=== PATIENT | female | born 1950 | race African-American/Black ===

== ENCOUNTER → 2017-04-09 | Outpatient (CLI) | payer OTHER ==
[~2017-04-09] MED LIST: AMLODIPINE BESY10 MG; IBUPROFEN 800800 M1 PO
== END ==
LOC: NUC 08:56
DX: M81.0 Age-related osteoporosis without current pathological fracture (principal); M85.88 Other specified disorders of bone density and structure, other site

== ENCOUNTER 2017-06-10 04:36 | Inpatient (IN) | payer OTHER ==
[2017-06-10] VITALS (16 sets, daily range): BP systolic 96–177; BP diastolic 53–104
[~2017-06-10] VITALS: Ht 160 cm; Wt 74.4 kg
--- NOTE | ~2017-06-10 | H ---
[facility] [place] [address] HISTORY AND PHYSICAL Name: WILEY ROSADO Alok Room #: 218-P ADM IN M.R.#: [id number] Admission: 06/10/17 Attend Phys: Julio Young MD, Discharge: Date of : 50 Report #: [id number] THIS REPORT FOR: //name// CC: Julio Loya MD DATE OF SERVICE: 06/10/2017 HISTORY OF PRESENT ILLNESS: The patient is a 66-year-old -Filipino female. She does not have any prior cardiac history, has noted on and off left-sided chest pain, radiating around to the back, she states intermittently for the last 4 days. She denies any real change in exercise tolerance and may be slightly more fatigued, she states. Her initial troponin interestingly was elevated 3.2. H and H are 13 and 39. Her creatinine was 0.7. She is active, but does not regularly exercise. She is a long time smoker on and off for the last 40 years. Her pain was 6/10 initially and then received some nitroglycerin, did improve at 1/10. Essentially pain free at this point. EKG sinus rhythm with nonspecific changes. I am trying to review this. This was noted from the ER. PAST MEDICAL HISTORY: Positive for an ectopic and hypertension. She is not aware of elevated cholesterol in the past, and she has been noncompliant with her blood pressure meds. SOCIAL HISTORY: She is . She has children who live all over the country. 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 Positive tobacco. Social alcohol. REVIEW OF SYSTEMS: Essentially negative except for stated above, some occasional reflux and heartburn symptoms, although this seems different, she states. ALLERGIES: No known drug allergies. PHYSICAL EXAMINATION: GENERAL: Pleasant, alert. VITAL SIGNS: Blood pressure is 140/74, pulse is 70s and regular. HEENT: Eyes reveal xanthelasma. Pharynx is clear. NECK: Shows preserved upstrokes without JVD or bruits. LUNGS: Clear. CARDIOVASCULAR: Regular rate and rhythm, S1, S2. ABDOMEN: Soft, slightly tender in the midepigastric area, but no rebound. Positive bowel sounds. EXTREMITIES: Reveal no edema. Distal pulses slightly diminished, but intact. NEUROLOGIC: Nonfocal. SKIN: Warm and dry without xanthoma or ulcer. [facility] [address] [place] [address] HISTORY AND PHYSICAL Name: WILEY ROSADO Room #: 218-P [facility] IN [facility]#: [id number] Admission: 06/10/17 Attend Phys: Julio Young MD, Discharge: Date of : 50 Report #: [id number] MUSCULOSKELETAL: No gross joint deformity. ASSESSMENT: 1. Non-ST elevation myocardial infarction (currently pain free). 2. Hypertension. 3. Suspected hypercholesterolemia. 4. History of reflux. RECOMMENDATIONS AND PLAN: We will proceed to the catheterization lab to delineate the anatomy. In light of the troponin of 3, this likely to be a false positive. Intervention is indicated. Risks, benefits, alternatives were discussed with the patient. I will check a lipid profile, which is still pending. Repeat the EKG and echo Doppler in addition, but we will proceed somewhat urgently to the experimental machining lab manager at this point. Thank you for opportunity to assist in the care of this patient. <ELECTRONICALLY SIGNED> By: Julio Young MD, FACC 06/10/17 1122 0807 0848 Julio Young MD, FACC /nt
--- NOTE | ~2017-06-10 | EKG ---
[address] [address] ELECTROCARDIOGRAM REPORT Name: WILEY ROSADO Room #: 218- ADM IN M.R.#: [id number] Admission: 06/10/17 Attend Phys: Julio Young MD, Discharge: Date of : 50 Report #: [id number] THIS REPORT FOR: //name// [facility] Test Date: 2017-06-11 Test Time: 06:00:26 Pat Name: WILEY ROSADO Department: Room: 218 Gender: F Component Lab Tech: ADIEL : 1950 Requested By: Julio Young Order Number: [id number] MD: David Valdez Measurements Intervals [place] Rate: 58 P: 39 UT: 142 QRS: 92 QRSD: 106 T: 40 QT: 423 QTc: 416 Interpretive Statements Sinus bradycardia Probable left atrial enlargement Consider right ventricular hypertrophy Baseline wander in lead(s) V3 Compared to ECG 06/10/2017 10:02:31 No significant change was found Electronically Signed On 06-11-2017 8:04:32 ORACLE DATABASE ADMINISTRATOR by David Valdez [email or web address] <ELECTRONICALLY SIGNED> By: David Valdez MD, [facility] 06/11/17 0804 06 06 David Valdez MD, [facility] /EPI
--- NOTE | ~2017-06-10 | EKG ---
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: Bryon SANCHEZ : 1950 Requested By: Julio Young Order Number: [id number] MD: David Valdez Measurements Intervals [place] Rate: 56 P: 39 [place]: 161 QRS: 91 QRSD: 83 T: 46 QT: 432 QTc: 417 Interpretive Statements Sinus rhythm Nonspecific ST segment abnormality Abnormal R-wave progression, early transition Compared to ECG 06/10/2017 04:41:47 Atrial premature complex(es) no longer present Electronically Signed On 06-10-2017 17:32:09 SURVEY PARTY CHIEF by David Valdez [email or web address] <ELECTRONICALLY SIGNED> By: David Valdez MD, FAC 06/10/17 1732 1002 1002 David Valdez MD, [facility] /EPI
--- NOTE | ~2017-06-10 | CATHLAB ---
[facility] [place] [address] INVASIVE PROCEDURE REPORT Name: ALONZOWILEY Room #: 218-P DIS IN ..#: [id number] Admission: 06/10/17 Attend Phys: Julio Young, Discharge: 06/12/17 Date of : 50 Date of Service: 06/16/17 1736 Report #: [id number] THIS REPORT FOR: //name// APPROVED REPORT Patient Details Patient Status: In-Patient Room #: 218 The patient is a 66 year-old female Event Personnel Julio Young Ferris Wheel Attendant, Bob Porter RN, Jina Alarcon, Mitesh Kaminski Monitor Procedures Performed Art Access - R femoral artery* Left Heart Cath w/or w/o Coronaries [id number] [facility] Aortogram Abdominal Peripheral Angio [id number] BECKY Place w/wo Plasty Addl BR OM 1 C9601 DESADDL Procedure Narrative The Right Groin^ was infiltrated with 1% Lidocaine subcutaneous anesthesia. A PINNACLE 6FR Sheath #[id number] sheath was inserted into the RFA^. Coronary angiography was performed using coronary diagnostic catheters. The right coronary system was accessed and visualized with a JR4 catheter. The left coronary system was accessed and visualized with a JL4 catheter. The left ventricle was accessed and visualized with a Pigtail catheter. Left ventriculogram was performed in 30 degree projection. An aortogram of the abdominal aorta was performed. Closure device was deployed with a 6 Fr Mynx. The patient tolerated the procedure well and there were no complications associated with the procedure. There was no hematoma. Intraoperative Conscious Sedation Sedation start time: 08:11 Case end Time: 08:42 Versed 2 mg Fluoro Time: 7.30 minutes Dose: 956 mGy Contrast Type and Amount: Omnipaque 210 ml Hemodynamics The aortic pressure is 144/78 mmHg with a mean of 106 mmHg. The left ventricular pressure is 130/8 mmHg with a mean of mmHg. The left ventricular end diastolic pressure is 27 mmHg. [facility] [address] [place] [address] INVASIVE PROCEDURE REPORT Name: WILEY ROSADO Room #: 218-P [facility] IN [facility].#: [id number] Admission: 06/10/17 Attend Phys: Julio Young, Discharge: 06/12/17 Date of : 50 Date of Service: 06/16/17 1736 Report #: [id number] PCI Technique Lesion Percutaneous coronary intervention was performed on the first obtuse marginal branch segment. A LAUNCHER 6FR EBU 3.5 #[id number] Guide Catheter was used to engage the LCA ostium. A Luge Wire .014 x 182CM #[id number] Interventional Guidewire was used to cross the lesion. BALLOON DILATION A Balloon catheter Sprinter OTW 2.5 x 12 #[id number] was inserted and inflated up to 6.00atm for 32seconds. Additional Inflation: 8.00atm for 20seconds. Additional Inflation: 4.00atm for 22seconds. STENT DEPLOYMENT A drug-eluting stent RESOLUTE OTW 2.5 X 8 #[id number] was inserted and inflated up to 12.00atm for 25seconds. POST STENT DEPLOYMENT BALLOON DILATION A Balloon catheter RESOLUTE OTW 2.5 X 8 #[id number] was inserted and inflated up to 14.00atm for 22seconds. Conclusion #1 successful emergent PTCA stent of proximal OM branch largest system 100% occlusion to 0% with a 2.5 x 12 resolute drug-eluting stent postdilated 2.7 mm. Extensive distribution of this OM system. #2 left main free of disease giving rise to LAD and circumflex #3 LAD with mild irregularities 3040% proximal is extensive the apex with diffuse disease distally there is an ostial lesion of 40-50% just off the left main #4 anatomically dominant right coronary artery with mild disease in the proximal and mid segment with the PDA well preserved #5 normal left ventricular size with a lateral wall hypokinetic segment EF 50% range #6 abdominal aorta is intact with a renal arteries widely patent no aneurysm. Recommendation continue aggressive risk factor modification dual antiplatelet therapy. No lifting for 48 hours. No line tub Jacuzzi or Martins for a week. No MRI or dental work for 3 months. Transfer to CCU in stable condition <ELECTRONICALLY SIGNED> By: Julio Young MD, FACC 06/16/17 1736 35 35 Julio Young MD, FACC /INF
--- NOTE | ~2017-06-10 | 2DMMODE ---
[facility] [place] [address] 2 D/M-MODE ECHOCARDIOGRAM Name: WILEY ROSADO Room #: 218-P [facility] IN .R.#: [id number] Admission: 06/10/17 Attend Phys: Julio Young, Discharge: Date of : 50 Date of Service: 06/10/17 1218 Report #: [id number] THIS REPORT FOR: //name// APPROVED REPORT Study performed: 06/10/2017 10:12:37 EXAM: Comprehensive 2D, Doppler, and color-flow Echocardiogram Patient Location: [facility] Room #: 218 Status: routine BSA: 1.78 HR: 58 bpm BP: 137/91 mmHg Rhythm: NSR Other Information Study Quality: Adequate Indications Chest pain, elevated tropinin. Status post stent 06/10/17. Hx: HTN 2D Dimensions RVDd: 36.28 mm LVEF(%): 51.02 (>50%) IVSd: 10.18 (7-11mm) LVOT Diam: 19.35 (18-24mm) LVDd: 41.30 mm PWd: 10.45 (7-11mm) Ascending Ao: 31.53 (22-36mm) LVDs: 30.69 (25-40mm) Aortic Root: 32.64 mm Claros's LVEF: 51.02 % Volumes Left Atrial Volume (Systole) Single Plane 4CH: 40.62 mL Single Plane 2CH: 49.01 mL LA ESV Index: 29.00 mL/m2 Aortic Valve AoV Peak Milad.: 1.73 m/s AO Peak Gr.: 11.96 mmHg LVOT Max P.08 mmHg LVOT Max V: 1.13 m/s ROSEMARY Vmax: 1.91 cm2 Mitral Valve E/A Ratio: 0.7 [facility] [place] [address] 2 D/M-MODE ECHOCARDIOGRAM Name: WILEY ROSADO Room #: 218-P [facility] IN .R.#: [id number] Admission: 06/10/17 Attend Phys: Julio Young, Discharge: Date of : 50 Date of Service: 06/10/17 1218 Report #: [id number] MV Decel. Time: 154.46 ms MV E Max Milad.: 0.86 m/s MV A Milad.: 1.16 m/s MV PHT: 44.79 ms IVRT: 59.98 ms Pulmonary Valve PV Peak Milad.: 0.92 m/s PV Peak Gr.: 3.36 mmHg Tricuspid Valve TR Peak Milad.: 2.63 m/s RAP Estimate: 5.00 mmHg TR Peak Gr.: 27.63 mmHg PA Pressure: 33.00 mmHg Left Ventricle The left ventricle is normal size. Lateral wall hypokinesis There is normal left ventricular wall thickness. Left ventricular systolic function is mildly decreased. LVEF is 45-50%. Mild diastolic dysfunction is present (impaired relaxation pattern). Right Ventricle The right ventricle is normal size. The right ventricular systolic function is normal. Atria The left atrium size is normal. The right atrium size is normal. Aortic Valve Aortic valve is mildly calcified, trileaflet No aortic regurgitation is present. There is no aortic valvular stenosis. Mitral Valve The mitral valve is normal in structure. Mild to moderate mitral regurgitation Tricuspid Valve The tricuspid valve is normal in structure. Mild to moderate tricuspid regurgitation. Estimated PAP is 30-35mmHg. Pulmonic Valve The pulmonary valve is normal in structure. Trace pulmonic regurgitation. Great Vessels The aortic root is normal in size. The ascending aorta is normal in [address] [address] 2 D/M-MODE ECHOCARDIOGRAM Name: ALONZOWILEY Room #: 218-P [facility] IN [facility]#: [id number] Admission: 06/10/17 Attend Phys: Julio Young, Discharge: Date of : 50 Date of Service: 06/10/17 1218 Report #: [id number] size. IVC is normal in size and collapses >50% with inspiration. Pericardium There is no pericardial effusion. <Conclusion> Left ventricular systolic function is mildly decreased. Lateral wall hypokinesis. LVEF 45-50%. Mild diastolic dysfunction is present (impaired relaxation pattern). Aortic valve is mildly calcified, trileaflet. No aortic valvular stenosis or insufficiency. The mitral valve is normal in structure. Mild to moderate mitral regurgitation Pulmonary artery pressure of 30-35mmHg There is no pericardial effusion. <ELECTRONICALLY SIGNED> By: David Valdez MD, FACC 06/10/17 1218 David Valdez MD, FACC /INF
--- NOTE | ~2017-06-10 | D ---
[facility] [place] [address] DISCHARGE SUMMARY Name: WILEY ROSADO Room #: 218-P [facility] IN M.R.#: [id number] Admission: 06/10/17 Attend Phys: Julio Young MD, Discharge: 06/12/17 Date of : 50 Report #: [id number] THIS REPORT FOR: //name// CC: Julio Loya MD DATE OF SERVICE: 06/12/2017 HOSPITAL COURSE: A 66-year-old female who was admitted with onset of chest pain. Says it had been stuttering for 4 days, became worse the night of admission. Had a slight elevation in the troponin initially and subsequently taken to the Catheterization Lab. Found to have a totally occluded circumflex OM system and this rather turned out to be a significant large distribution of the circumflex artery. This patient had this successfully dilated and stented with a 2.5 x 8 Resolute drug-eluting stent. Just off of the OM was extensive distribution. This was postdilated 2.8 mm. 40% ostial LAD lesion, mild left main and a dominant right without significant occlusive disease. Small area of hypokinesis in the lateral wall. EF was approximately 45-50%. I expect this to improve. She has tolerated this well. She is up and ambulating. She will enter into Outpatient Cardiac Rehab. She will be discharged on aspirin and Plavix, metoprolol 50, losartan 25, atorvastatin 40. No lifting for 48 hours. No lying in tub, Jacuzzi or ramos for a week. No MRI or dental work for 3 months. The patient is scheduled enter into outpatient cardiac rehab next week and has followup with me in 3 months with an echo Doppler to assess the LV function, which I suspect will nearly normalize. She will call with any issues. Hemodynamically stable. DISCHARGE DIAGNOSES: 1. Non-ST elevation myocardial infarction with total troponin up to 68. 2. Mild ischemic cardiomyopathy, expect improvement. 3. Hypertension. 4. Hypercholesterolemia. 5. History of reflux. Thank you for asking me to assist care of this patient. <ELECTRONICALLY SIGNED> By: Julio Young MD, FACC 06/16/17 0902 0910 0941 Julio Young MD, FACC /nt
--- NOTE | ~2017-06-10 | EKG ---
[address] [place] [address] ELECTROCARDIOGRAM REPORT Name: WILEY ROSADO Room #: 218-P ADM IN M.R.#: [id number] Admission: 06/10/17 Attend Phys: Julio Young MD, Discharge: Date of : 50 Report #: [id number] THIS REPORT FOR: //name// [facility] ED Test Date: 2017-06-10 Test Time: 04:41:47 Pat Name: WILEY ROSADO Department: Room: 218 Gender: F Graphics Production Specialist: ELLIS : 1950 Requested By: Maura Miranda Order Number: [id number] MD: Brown Almanza Measurements Intervals [place] Rate: 72 P: 30 [place]: 145 QRS: 81 QRSD: 84 T: 48 QT: 402 QTc: 440 Interpretive Statements Sinus rhythm Atrial premature complexes Probable left atrial enlargement Borderline right axis deviation Abnormal R-wave progression, early transition Borderline ST depression, anterolateral leads Compared to ECG 07/06/2005 16:06:08 Atrial premature complex(es) now present ST (T wave) deviation now present Possible ischemia no longer present Electronically Signed On 06-10-2017 8:19:07 METAL EXTRUSION SUPERVISOR by Brown Almanza [email or web address] <ELECTRONICALLY SIGNED> By: Brown Almanza MD 06/10/17 08 0 0 Brown Almanza MD /EPI
[2017-06-10 05:27] LABS: ABSOLUTE NEUTROPHILS 8.3 thou/uL (1.4-8.2); BASOPHILS 0.4 % (0.0-2.0); EOSINOPHILS 0.8 % (0.0-3.0); HEMATOCRIT 39.5 % (37.0-47.0); HEMOGLOBIN 13.2 gm/dL (12.0-15.0); LYMPHOCYTES 20.3 % (24.0-44.0); MCH 31.3 pg (26.0-34.0); MCHC 33.5 g/dL (28.0-37.0); MCV 93.4 fL (80.0-100.0); MONOCYTES 7.8 % (1.0-8.0); PLATELET COUNT 251 thou/uL (150-400); POLYS 70.7 % (36.0-66.0); RBC 4.23 mil/uL (4.20-5.00); RDW 12.8 % (10.5-14.5); WBC 11.7 thou/uL (4.0-11.0)
[2017-06-10 05:36] LABS: CALCIUM 9.5 mg/dL (8.5-10.1); CREATININE 0.7 mg/dL (0.6-1.0); POTASSIUM 3.9 mmol/L (3.5-5.1)
[2017-06-10 05:50] LABS: TROPONIN-I 3.2 ng/mL (<0.06)
[2017-06-10 09:44] LABS: CHOLESTEROL 159 mg/dL (<200); HDL CHOLESTEROL 43 mg/dL (>40); LDL CHOLESTEROL 112 mg/dL (<100); TC:HDL 3.7 Ratio (Not establshd); TRIGLYCERIDE 24 mg/dL (<150); VLDL 5 mg/dL (<40)
[2017-06-11 00:30] VITALS: BP 120/66
[2017-06-11 03:50] LABS: HEMATOCRIT 37.8 % (37.0-47.0); HEMOGLOBIN 12.5 gm/dL (12.0-15.0); MCH 31.4 pg (26.0-34.0); MCV 94.9 fL (80.0-100.0); RBC 3.99 mil/uL (4.20-5.00); RDW 12.8 % (10.5-14.5); WBC 10.1 thou/uL (4.0-11.0)
[2017-06-11 04:10] LABS: CALCIUM 8.5 mg/dL (8.5-10.1); CREATININE 0.8 mg/dL (0.6-1.0); POTASSIUM 4.2 mmol/L (3.5-5.1)
[2017-06-11 04:20] LABS: TROPONIN-I 23.98 ng/mL (<0.06)
[2017-06-11 06:01] VITALS: BP 100/59
[2017-06-11 12:20] VITALS: BP 111/68
[2017-06-11] MEDS ORDERED: METOPROLOL SUCC50 MG PO (16:19)
[2017-06-11] MEDS ORDERED: COZAAR 25 MG TA25 M1 PO (16:19)
[2017-06-11] MEDS ORDERED: CLOPIDOGREL75 MG PO (16:19)
[2017-06-11] MEDS ORDERED: ATORVASTATIN CA40 MG PO (16:19)
[2017-06-11 16:35] VITALS: BP 122/51
[2017-06-11 20:15] VITALS: BP 128/75
[2017-06-11 20:45] VITALS: BP 128/75
[2017-06-12 04:30] VITALS: BP 122/65
[2017-06-12 04:35] LABS: CALCIUM 8.8 mg/dL (8.5-10.1); CREATININE 0.7 mg/dL (0.6-1.0); POTASSIUM 4.3 mmol/L (3.5-5.1)
[2017-06-12 07:45] VITALS: BP 135/68
[2017-06-12] MEDS ORDERED: ASPIRIN325 PO (09:06)
[2017-06-12 09:24] VITALS: BP 122/65
[2017-06-12 09:28] VITALS: BP 122/65
== END 2017-06-12 10:20 | disposition home or self-care (01) | DRG 247 ==
LOC: ER 04:36 → 2N 06:02 → EROBS 06:02 → 2N 06:31
PROVIDERS: Emergency Medicine; Internal Medicine Cardiovascular Disease; Nurse Practitioner Adult Health
DX: I21.4 Non-ST elevation (NSTEMI) myocardial infarction (principal); I10 Essential (primary) hypertension; I25.5 Ischemic cardiomyopathy; E78.00 Pure hypercholesterolemia, unspecified; K21.9 Gastro-esophageal reflux disease without esophagitis; F17.210 Nicotine dependence, cigarettes, uncomplicated; Z71.6 Tobacco abuse counseling
CPT/HCPCS: 10081

== ENCOUNTER → 2020-03-22 | Outpatient (CLI) | payer OTHER ==
[~2020-03-22] MED LIST changes: +ASPIRIN325 PO; +ATORVASTATIN CA40 MG PO; +CLOPIDOGREL75 MG PO; +COZAAR 25 MG TA25 M1 PO; +METOPROLOL SUCC50 MG PO
== END ==
LOC: SJCVC 13:12
PROVIDERS: ATTEND Internal Medicine Cardiovascular Disease
DX: R94.31 Abnormal electrocardiogram [ECG] [EKG] (principal); I25.10 Atherosclerotic heart disease of native coronary artery without angina pectoris; E78.00 Pure hypercholesterolemia, unspecified; I10 Essential (primary) hypertension; I21.4 Non-ST elevation (NSTEMI) myocardial infarction; I34.1 Nonrheumatic mitral (valve) prolapse; R07.9 Chest pain, unspecified; I42.2 Other hypertrophic cardiomyopathy

== ENCOUNTER → 2020-04-12 | Outpatient (CLI) | payer OTHER | LOC: SJCVCIMAG 08:37 | PROVIDERS: ATTEND Internal Medicine Cardiovascular Disease | DX: I34.1 Nonrheumatic mitral (valve) prolapse (principal); I11.9 Hypertensive heart disease without heart failure; E78.5 Hyperlipidemia, unspecified; I25.10 Atherosclerotic heart disease of native coronary artery without angina pectoris; Z95.5 Presence of coronary angioplasty implant and graft ==

== ENCOUNTER → 2020-04-18 | Outpatient (CLI) | payer OTHER | LOC: SJCVCIMAG 09:37 | PROVIDERS: ATTEND Internal Medicine Cardiovascular Disease | DX: R94.31 Abnormal electrocardiogram [ECG] [EKG] (principal); I49.1 Atrial premature depolarization; I11.9 Hypertensive heart disease without heart failure; N28.1 Cyst of kidney, acquired; I25.10 Atherosclerotic heart disease of native coronary artery without angina pectoris; I34.1 Nonrheumatic mitral (valve) prolapse; E78.00 Pure hypercholesterolemia, unspecified; I25.2 Old myocardial infarction; F17.210 Nicotine dependence, cigarettes, uncomplicated; Z79.82 Long term (current) use of aspirin; Z79.899 Other long term (current) drug therapy ==

== ENCOUNTER → 2020-06-04 | Outpatient (CLI) | payer OTHER | LOC: SJCVC 10:24 | PROVIDERS: ATTEND Nurse Practitioner | DX: I25.10 Atherosclerotic heart disease of native coronary artery without angina pectoris (principal); R93.1 Abnormal findings on diagnostic imaging of heart and coronary circulation; I49.49 Other premature depolarization; E78.00 Pure hypercholesterolemia, unspecified; I11.9 Hypertensive heart disease without heart failure; I34.1 Nonrheumatic mitral (valve) prolapse; I25.2 Old myocardial infarction; Z95.5 Presence of coronary angioplasty implant and graft; Z79.82 Long term (current) use of aspirin; Z79.899 Other long term (current) drug therapy; Z87.891 Personal history of nicotine dependence ==

== ENCOUNTER → 2020-11-12 | Outpatient (CLI) | payer OTHER | LOC: RAD 14:54 | PROVIDERS: ATTEND Family Medicine | DX: R05 Cough (principal); R10.2 Pelvic and perineal pain; M81.0 Age-related osteoporosis without current pathological fracture; I51.7 Cardiomegaly ==

== ENCOUNTER → 2021-01-07 | Outpatient (CLI) | payer OTHER | LOC: NUC 09:20 | PROVIDERS: ATTEND Family Medicine | DX: D25.9 Leiomyoma of uterus, unspecified (principal); M85.88 Other specified disorders of bone density and structure, other site; I51.7 Cardiomegaly; R09.89 Other specified symptoms and signs involving the circulatory and respiratory systems ==

== ENCOUNTER → 2021-01-14 | Outpatient (CLI) | payer OTHER | LOC: SJCVC 13:31 | PROVIDERS: ATTEND Internal Medicine Cardiovascular Disease | DX: R94.31 Abnormal electrocardiogram [ECG] [EKG] (principal); I49.8 Other specified cardiac arrhythmias; R00.1 Bradycardia, unspecified; R06.09 Other forms of dyspnea; I25.10 Atherosclerotic heart disease of native coronary artery without angina pectoris; I11.9 Hypertensive heart disease without heart failure; I34.1 Nonrheumatic mitral (valve) prolapse; E78.00 Pure hypercholesterolemia, unspecified; I10 Essential (primary) hypertension; Z87.891 Personal history of nicotine dependence; Z79.82 Long term (current) use of aspirin; Z79.899 Other long term (current) drug therapy; Z88.1 Allergy status to other antibiotic agents ==